=== PATIENT | female | born 1955 | race Caucasian/White ===

== ENCOUNTER 2020-04-25 14:21 | Emergency (ER) | payer MEDICARE, OTHER ==
[2020-04-25 14:36] VITALS: BP 179/96; PULSE 110; O2SAT 96
[2020-04-25] MEDS ORDERED: Adacel Vial IM ONE ×2 (14:41→14:46)
--- NOTE | 2020-04-25 14:48 | ERPHSYRPT ---
- History of Present Illness Time Seen by Provider: 04/25/20 14:40 Source: patient Patient Subjective Stated Complaint: pt here for a superficial laceration to left ankle, she was push mowing today and something hit her to ankle. Triage Nursing Assessment: pt alert, face mask on, resp easy,walked in, has swelling and brusing to left ankle with a 7cm superficial laceration to ankle no bleeding noted Physician History: Patient is a 64-year-old female presents to our ED for evaluation of a superficial laceration to her left medial malleolus. Patient was cutting grass when an object flung at her ankle. Patient bled considerably decided to come to our ED for evaluation. Injury occurred just prior to arrival. Pain is minimal. Patient declined pain medication. Patient is ambulatory. Tetanus is not up-to-date. Patient advised that we will update her tetanus today. No other injuries reported. Pain described as an ache that is well localized. Patient voices no other complaints or concerns at this time. Timing/Duration: today Quality: painful Severity: mild Location: other (Just superficial to left medial malleolus.) Possible Causes: other (Injury) Modifying Factors: Improves With: other Associated Symptoms: denies symptoms Allergies/Adverse Reactions: Penicillins Allergy (Verified 04/25/20 14:36) Home Medications: Venlafaxine HCl [Venlafaxine HCl ER] 1 ea DAILY 04/25/20 [History] Hx Tetanus, Diphtheria Vaccination/Date Given: No Hx Influenza Vaccination/Date Given: Yes Hx Pneumococcal Vaccination/Date Given: No Immunizations Up to Date: Yes Travel Risk - International Travel Have you traveled outside of the country in past 3 weeks: No - Coronavirus Screening Are you exhibiting any of the following symptoms?: No Close contact with a COVID-19 positive Pt in past 14-21 Days: No - Review of Systems Constitutional: No Symptoms, No Fever, No Chills Eyes: No Symptoms Ears, Nose, & Throat: No Symptoms Respiratory: No Symptoms, No Cough, No Dyspnea Cardiac: No Symptoms, No Chest Pain, No Edema, No Syncope Abdominal/Gastrointestinal: No Symptoms, No Abdominal Pain, No Nausea, No Vomiting, No Diarrhea Genitourinary Symptoms: No Symptoms, No Dysuria Musculoskeletal: No Symptoms, No Back Pain, No Neck Pain Skin: No Symptoms, No Rash Neurological: No Symptoms, No Dizziness, No Focal Weakness, No Sensory Changes Psychological: No Symptoms Endocrine: No Symptoms Hematologic/Lymphatic: No Symptoms Immunological/Allergic: No Symptoms All Other Systems: Reviewed and Negative - Past Medical History Pertinent Past Medical History: Yes Psycho-Social History: Depression - Past Surgical History Past Surgical History: Yes - Social History Smoking Status: Never smoker Exposure to second hand smoke: No Drug Use: none Patient Lives Alone: No - Female History Hx Last Menstrual Period: post Hx Now: No - Nursing Vital Signs Nursing Vital Signs: Initial Vital Signs Temperature 98.2 F 04/25/20 14:30 Pulse Rate 110 H 04/25/20 14:30 Respiratory Rate 04/25/20 14:30 Blood Pressure 179/96 04/25/20 14:30 O2 Sat by Pulse Oximetry 96 04/25/20 14:30 Pain Scale Pain Intensity 5 - Physical Exam General Appearance: no apparent distress, alert Eye Exam: PERRL/EOMI, eyes nml inspection Ears, Nose, Throat Exam: normal ENT inspection, moist mucous membranes Neck Exam: normal inspection, full range of motion Respiratory Exam: normal breath sounds, lungs clear, airway intact, No respiratory distress, No accessory muscle use Cardiovascular Exam: regular rate/rhythm, normal heart sounds Gastrointestinal/Abdomen Exam: soft, No tenderness Back Exam: normal inspection, normal range of motion, No CVA tenderness, No vertebral tenderness Extremity Exam: normal inspection, normal range of motion Neurologic Exam: alert, oriented x 3, cooperative, normal mood/affect, sensation nml, No motor deficits Skin Exam: normal color, warm, dry, other (7 cm superficial laceration just over the medial malleolus. No exposed bone. No active bleeding or drainage. Patient's involved extremity is neurovascular intact distally. Compartments are soft. Cap refill less than 2 seconds. PT DP pulse palpable.) Lymphatic Exam: No adenopathy SpO2 Interpretation: normal SpO2: 96 O2 Delivery: Room Air - Course Nursing assessment & vital signs reviewed: Yes Ordered Tests: Medication Summary Discontinued Medications Generic Name Dose Route Start Last Admin Trade Name Freq PRN Reason Stop Dose Admin Diphtheria/Tetanus/Acell Pertussis 0.5 ml 04/25/20 14:41 Adacel Vial IM 04/25/20 14:42 .ONCE ONE - Progress Progress: improved Progress Note: 04/25/20 14:46 Patient's wound was irrigated and dressed. Tetanus was updated. No indication for laceration repair or stitches. Local wound care only. Wound was irrigated and dressed with antibiotic ointment. Patient is ambulatory with minimal to no pain. Patient states she presents to our ED simply because she was concerned with the amount of bleeding. No active bleeding at this time. Extremity neurovascular type distally. We will discharge patient home. Patient agrees to follow-up with her primary care doctor within 48 hours for reevaluation. No indication for antibiotics at this time. 04/25/20 14:48 Counseled pt/family regarding: diagnosis, need for follow-up - Departure Departure Disposition: Home Clinical Impression: Abrasion Condition: Good Critical Care Time: No Instructions: Wound Care (DC) Additional Instructions: Discharge/Care Plan REX BRICENO was seen on 04/25/20 in the Emergency Room. The patient was counseled regarding Diagnosis,Lab results, Imaging studies, need for follow up and when to return to the Emergency Room. Prescriptions given: Discharge Note I have spoken with the patient and/or caregivers. I have explained the patient's condition, diagnosis and treatment plan based on the information available to me at this time. I have answered the patient's and/or caregiver's questions and addressed any concerns. The patient and/or caregivers have as good understanding of the patient's diagnosis, condition and treatment plan as can be expected at this point. The vital signs have been stable. The patient's condition is stable and appropriate for discharge from the emergency department. The patient will pursue further outpatient evaluation with the primary care physician or other designated or consulting physician as outlined in the discharge instructions. The patient and/or caregivers are agreeable to this plan of care and follow-up instructions have been explained in detail. The patient and/or caregivers have received these instruction. The patient/and or caregivers are aware that any significant change in condition or worsening of symptoms should prompt an immediate return to this or the closest emergency department or call 911.
== END 2020-04-25 14:56 | disposition home or self-care (01) ==
LOC: ED 14:21
DX: S90.512A Abrasion, left ankle, initial encounter (principal); W22.8XXA Striking against or struck by other objects, initial encounter; Y93.H9 Activity, other involving exterior property and land maintenance, building and construction; Y92.89 Other specified places as the place of occurrence of the external cause; Y99.8 Other external cause status
CPT/HCPCS: 90471; 90715; 99283

== ENCOUNTER 2022-01-28 07:59 | Day surgery (SDC) | payer MEDICARE, OTHER ==
[~2022-01-28 07:59] MED LIST: Ak-Dilate OPHTHALMIC*** 1.065 ML, Cyclogyl 1% OPHTH SOL 1.065 ML, GATIFLOXACIN 0.5% OPH... OP ONE; BETADINE 5% OPHTHALMIC 30 ML OP ONE; Lactated Ringers 1,000 ML IV SCH; NON-FORMULARY ITEM OP ONE; TETRACAINE 0.5% STERI-UNIT SOL OP ONE; cefUROXime sodium 0.005 GM in Sodium Chloride Flush 30 ML*** 0.5 ML IJ ONE
[2022-01-28] MEDS ORDERED: Lactated Ringers 1,000 ML IV ONE (08:41)
[2022-01-28] MEDS ORDERED: LIDOCAINE HCL 1% 50 MG/5 ML VL PF IJ ONE (09:00)
[2022-01-28] MEDS ORDERED: ACETAZOLAMIDE 250 MG TABLET PO ONE (09:00)
[2022-01-28] MEDS ORDERED: Zofran 4 MG/2 ML VIAL IV PRN (09:00)
[2022-01-28] MEDS ORDERED: Epinephrine Preservative Free 1 MG/ML IJ ONE (09:00)
[2022-01-28] MEDS ORDERED: DIPRIVAN 200 MG/20 ML IV ONE (10:25)
[2022-01-28 11:05] VITALS: BP 139/80; PULSE 77; O2SAT 97
== END 2022-01-28 11:15 | disposition home or self-care (01) ==
LOC: SDC 07:59
PROVIDERS: ATTEND Ophthalmology
DX: H25.812 Combined forms of age-related cataract, left eye (principal)
CPT/HCPCS: C1780; J0171; J2001; J2704; A9270-GY

== ENCOUNTER 2022-02-25 07:16 | Day surgery (SDC) | payer MEDICARE, OTHER ==
[2022-02-25] MEDS ORDERED: Lactated Ringers 1,000 ML IV ONE (07:43)
[2022-02-25] MEDS ORDERED: Ak-Dilate OPHTHALMIC*** 1.065 ML, Cyclogyl 1% OPHTH SOL 1.065 ML, GATIFLOXACIN 0.5% OPH... OP ONE ×4 (08:00)
[2022-02-25] MEDS ORDERED: BETADINE 5% OPHTHALMIC 30 ML OP ONE (08:00)
[2022-02-25] MEDS ORDERED: NON-FORMULARY ITEM OP ONE (08:00)
[2022-02-25] MEDS ORDERED: cefUROXime sodium 0.005 GM in Sodium Chloride Flush 30 ML*** 0.5 ML IJ ONE (08:00)
[2022-02-25] MEDS ORDERED: Lactated Ringers 1,000 ML IV SCH (08:00)
[2022-02-25] MEDS ORDERED: TETRACAINE 0.5% STERI-UNIT SOL OP ONE ×2 (08:00)
[2022-02-25] MEDS ORDERED: Epinephrine Preservative Free 1 MG/ML IJ ONE (10:00)
[2022-02-25] MEDS ORDERED: ACETAZOLAMIDE 250 MG TABLET PO ONE (10:00)
[2022-02-25] MEDS ORDERED: LIDOCAINE HCL 1% 50 MG/5 ML VL PF IJ ONE (10:00)
[2022-02-25] MEDS ORDERED: Zofran 4 MG/2 ML VIAL IV PRN (10:00)
[2022-02-25] MEDS ORDERED: DIPRIVAN 200 MG/20 ML IV ONE (10:17)
[2022-02-25 10:45] VITALS: O2SAT 97
[2022-02-25 10:52] VITALS: BP 144/92; PULSE 82
== END 2022-02-25 10:57 | disposition home or self-care (01) ==
LOC: SDC 07:16
PROVIDERS: ATTEND Ophthalmology
DX: H25.811 Combined forms of age-related cataract, right eye (principal)
CPT/HCPCS: C1780; J0171; J2001; J2704; A9270-GY

== ENCOUNTER 2025-01-16 16:46 | Emergency (ER) | payer MEDICARE ==
--- NOTE | 2025-01-16 16:51 | ERPHSYRPT ---
- History of Present Illness Time Seen by Provider: 01/16/25 16:51 Source: patient, family Exam Limitations: no limitations Physician History: This is a 69-year-old white female patient who presents to the emergency department by private vehicle accompanied by her spouse with the complaint of intermittent left side of head face behind the ear pain and numbness without a history of trauma. She has not had any visual changes. She has had no changes in her speech. She has never had anything like this before. Patient takes no medications chronically and she is allergic to sulfa. Patient denies shortness of breath. Patient denies chest pain. She has had no nausea vomiting or diarrhea symptoms. Patient has not had any flulike symptoms. Timing/Duration: week(s) (3) Severity: mild Character of Deficits: altered sensation, Left Facial Deficits: no difficulties Baseline/Normal Cognition: alert oriented x 3 Current Cognition: alert oriented x 3 Baseline Gait: walks w/o assistance Associated Symptoms: denies symptoms Allergies/Adverse Reactions: Sulfa (Sulfonamide Antibiotics) Allergy (Verified 01/16/25 16:53) Hx Tetanus, Diphtheria Vaccination/Date Given: No Hx Influenza Vaccination/Date Given: Yes Hx Pneumococcal Vaccination/Date Given: No Travel Risk - International Travel Have you traveled outside of the country in past 3 weeks: No - Emerging Infectious Disease Are you exhibiting symptoms associated with any current EIDs: No - Review of Systems Constitutional: No Symptoms Eyes: No Symptoms Ears, Nose, & Throat: No Symptoms Respiratory: No Symptoms Cardiac: No Symptoms Abdominal/Gastrointestinal: No Symptoms Genitourinary Symptoms: No Symptoms Musculoskeletal: No Symptoms Skin: No Symptoms Neurological: No Symptoms Psychological: No Symptoms Endocrine: No Symptoms Hematologic/Lymphatic: No Symptoms Immunological/Allergic: No Symptoms All Other Systems: Reviewed and Negative - Past Medical History Pertinent Past Medical History: Yes Neurological History: No Pertinent History ENT History: Cataracts Cardiac History: No Pertinent History Respiratory History: No Pertinent History Endocrine Medical History: No Pertinent History Musculoskeletal History: Fibromyalgia GI Medical History: No Pertinent History History: No Pertinent History Psycho-Social History: No Pertinent History Female Reproductive Disorders: No Pertinent History - Past Surgical History Past Surgical History: Yes Neuro Surgical History: No Pertinent History Cardiac: No Pertinent History Respiratory: No Pertinent History Gastrointestinal: No Pertinent History Genitourinary: No Pertinent History Musculoskeletal: No Pertinent History Female Surgical History: Tubal Ligation - Social History Smoking Status: Never smoker Exposure to second hand smoke: No - Nursing Vital Signs Nursing Vital Signs: Initial Vital Signs Temperature 98.3 F 01/16/25 16:54 Pulse Rate 99 H 01/16/25 16:54 Respiratory Rate 21 01/16/25 16:54 Blood Pressure 196/118 01/16/25 16:54 O2 Sat by Pulse Oximetry 98 01/16/25 16:54 Pain Scale Pain Intensity 0 - Abraham Coma Scale Best Eye Response (Abraham): (4) open spontaneously Best Verbal Response (Van): (5) oriented Best Motor Response (Van): (6) obeys commands Van Total: 15 - Physical Exam General Appearance: no apparent distress, alert Eye Exam: bilateral eye: normal inspection, PERRL, EOMI Ears, Nose, Throat Exam: normal ENT inspection, moist mucous membranes Neck Exam: normal inspection, non-tender, supple, full range of motion Respiratory: normal breath sounds, lungs clear, airway intact, No chest tenderness, No respiratory distress Cardiovascular: regular rate/rhythm, normal heart sounds, normal peripheral pulses Gastrointestinal: soft, normal bowel sounds, No tenderness Pelvic Exam: not done Rectal Exam: not done Back Exam: normal inspection, normal range of motion, No CVA tenderness, No vertebral tenderness Extremity Exam: normal inspection, normal range of motion, pelvis stable Mental Status: alert, oriented x 3, cooperative business systems lead Exam: normal hearing, normal speech, PERRL, tongue midline Coordination/Gait: normal finger to nose, normal gait, normal cerebellar function Motor/Sensory: no motor deficit, no sensory deficit, no pronator drift Skin Exam: normal color, warm, dry SpO2 Interpretation: normal O2 Delivery: Room Air - Course Nursing assessment & vital signs reviewed: Yes Ordered Tests: Active Orders 24 hr Category Date Time Status NPO (ED) STAT Care 01/16/25 17:11 Active CERVICAL SPINE WO CONTRAST [CT] Stat Exams 01/16/25 17:12 Taken HEAD WITHOUT CONTRAST [CT] Stat Exams 01/16/25 17:11 Taken CBC W DIFF Stat Lab 01/16/25 17:10 Completed CMP Stat Lab 01/16/25 17:01 Completed UA W/RFX UR CULTURE Stat Lab 01/16/25 18:47 Completed Medication Summary Discontinued Medications Generic Name Dose Route Start Last Admin Trade Name Freq PRN Reason Stop Dose Admin Morphine Sulfate 2 mg 01/16/25 19:15 Morphine Sulfate 2 Mg/Ml Inj IV 01/16/25 19:16 STAT ONE Ondansetron HCl 4 mg 01/16/25 19:15 Ondansetron Hcl 4 Mg/2 Ml Vial IV 01/16/25 19:16 STAT ONE Lab/Rad Data: Laboratory Result Diagrams 01/16/25 17:10 01/16/25 17:01 Laboratory Results 01/16/25 01/16/25 01/16/25 Range/Units 18:47 17:10 17:01 WBC 6.4 (3.98-10.04) x10^3/uL RBC 5.25 H (3.93-5.22) x10^6/uL Hgb 15.5 (11.2-15.7) g/dL Hct 46.1 H (34.1-44.9) % MCV 87.8 (79.4-94.8) fL MCH 29.5 (25.6-32.2) pg MCHC 33.6 (32.2-35.5) g/dL RDW 12.8 (11.7-14.4) % Plt Count 272 (182-369) x10^3/uL MPV 10.0 (9.4-12.3) fL Gran % 58.6 (34.0-71.1) % Immature Gran % (Auto) 0.2 (0.001-0.429) % Nucleat RBC Rel Count 0.0 (0.00-0.2) % Eos # (Auto) 0.01 L (0.04-0.36) x10^3/uL Immature Gran # (Auto) 0.01 (0.001-0.031) x10^3u/L Absolute Lymphs (auto) 2.09 (1.18-3.74) x10^3/uL Absolute Monos (auto) 0.51 (0.24-0.86) x10^3/uL Absolute Nucleated RBC 0.00 (0.00-0.012) x10^3u/L Lymphocytes % 32.8 (19.3-51.7) % Monocytes % 8.0 (4.7-12.5) % Eosinophils % 0.2 L (0.7-5.8) % Basophils % 0.2 (0.1-1.2) % Absolute Granulocytes 3.75 (1.56-6.13) x10^3/uL Basophils # 0.01 (0.01-0.08) x10^3/uL Sodium 144 (135-145) mmol/L Potassium 3.9 (3.5-5.1) mmol/L Chloride 109 H (98-107) mmol/L Carbon Dioxide 24 (22-30) mmol/L Anion Gap 15.3 H (5-15) MEQ/L BUN 21 H (7-17) mg/dL Creatinine 0.93 (0.52-1.04) mg/dL Estimated GFR 65.7 ML/MIN Glucose 102 (74-106) mg/dL Calcium 9.7 (8.4-10.2) mg/dL Total Bilirubin 0.40 (0.2-1.3) mg/dL AST 32 (14-36) U/L ALT 27 (0-35) U/L Alkaline Phosphatase 88 (38-126) U/L Serum Total Protein 7.2 (6.3-8.2) g/dL Albumin 4.4 (3.5-5.0) g/dL Urine Color Yellow (Yellow) Urine Appearance Clear (Clear) Urine pH 6.0 (4.6-8.0) Ur Specific [place] 1.015 (1.005-1.030) Urine Protein Negative (Negative) Urine Glucose (UA) Negative (Negative) mg/dL Urine Ketones Negative (Negative) Urine Blood Negative (Negative) Urine Nitrite Negative (Negative) Urine Bilirubin Negative (Negative) Urine Urobilinogen 0.2 (0.2) mg/dL Ur Leukocyte Esterase Trace A (Negative) U Hyaline Cast (Auto) NONE SEEN (0-2) /LPF Urine Microscopic RBC 0-2 (0-5) /HPF Urine Microscopic WBC 0-2 (0-5) /HPF Ur Epithelial Cells None Seen (None Seen) /HPF Urine Bacteria None Seen (None Seen) /HPF Urine Culture Reflexed NO (NO) - Progress Progress: unchanged Progress Note: 01/16/25 19:06 My medical decision making and the assignment of moderate complexity to this patient's medical issue today is based on review of the patient's past medical history, review the patient's medication list, reviewed patient drug allergy list, history present illness and physical findings on examination. The workup in this patient includes placement of intravenous line, urinalysis, CBC, CMP, magnesium level, CT scan of the head and cervical spine, both without contrast. Differential diagnosis includes but is not limited to acute intracranial abnormality, electrolyte abnormalities, cervical spine nerve impingement, trigeminal neuralgia The CT scan of the cervical spine and head, both without contrast, were interpreted by the radiologist and I reviewed the impressions. The impression state: CT scan of cervical spine shows osteopenia with mild C5-C7 degenerative disc disease. Otherwise negative C-spine CT scan exam. No comparison studies. CT scan of the head without contrast shows normal head CT. I interpreted the laboratory data results that have returned thus far. The urinalysis is still pending. Based on what has returned, there are no acute, emergent medical issues. Counseled pt/family regarding: lab results, diagnosis, need for follow-up, rad results Medical Desision Making - Independent Historian Additional History obtained from: Spouse - Diagnostic Testing Diagnostic test were ordered, analyzed, and reviewed by me: Yes Radiological Interpretation: Reviewed by me, Teleradiologist Report - Departure Departure Disposition: Home Clinical Impression: Cervical pain (neck), Shoulder pain Condition: Stable Critical Care Time: No Referrals: RENÉ BENITEZ [Primary Care Provider] - Follow up/PCP as directed Additional Instructions: If there are no contraindications, you may use Tylenol and ibuprofen to add to your pain regimen. Call your primary care provider's office tomorrow, 01/17/2025, to make arrangements for follow-up appointment for further evaluation and management. Prescriptions: Orphenadrine Citrate 100 mg [Norflex 100 MG Tablet] 100 mg PO BID #10 tab
[2025-01-16 17:03] VITALS: TEMP 98.3
[2025-01-16 17:16] LABS: Absolute Neutrophil Ct (ANC) 3.75 x10^3/uL (1.56-6.13); BASOPHIL % 0.2 % (0.1-1.2); Basophil (Absolute #) 0.01 x10^3/uL (0.01-0.08); Eosinophil % 0.2 % (0.7-5.8); Eosinophil (Absolute #) 0.01 x10^3/uL (0.04-0.36); Hematocrit 46.1 % (34.1-44.9); Hemoglobin 15.5 g/dL (11.2-15.7); IMMATURE GRAN # 0.01 x10^3u/L (0.001-0.031); IMMATURE GRAN % 0.2 % (0.001-0.429); Lymphocyte (Absolute #) 2.09 x10^3/uL (1.18-3.74); Lymphocytes % 32.8 % (19.3-51.7); Mean Cell Volume 87.8 fL (79.4-94.8); Mean Corpuscular Hemoglobin 29.5 pg (25.6-32.2); Mean Corpuscular Hgb Concent. 33.6 g/dL (32.2-35.5); Monocyte (Absolute #) 0.51 x10^3/uL (0.24-0.86); Neutrophil % 58.6 % (34.0-71.1); Platelet Count 272 x10^3/uL (182-369); Red Blood Count 5.25 x10^6/uL (3.93-5.22); Red Cell Distribution Width 12.8 % (11.7-14.4); White Blood Count 6.4 x10^3/uL (3.98-10.04)
[2025-01-16 17:29] LABS: ALBUMIN 4.4 g/dL (3.5-5.0); ANION GAP 15.3 MEQ/L (5-15); BILIRUBIN,TOTAL 0.4 mg/dL (0.2-1.3); Calcium 9.7 mg/dL (8.4-10.2); Creatinine 1 0.93 mg/dL (0.52-1.04); EST GLOMERULAR FILTRATION RATE 65.7 ML/MIN; Potassium 3.9 mmol/L (3.5-5.1); Total Protein 7.2 g/dL (6.3-8.2)
[2025-01-16 19:03] LABS: Appearance Clear (Clear); Bacteria None Seen /HPF (None Seen); Bilirubin Negative (Negative); Blood Negative (Negative); Epithelial Cells None Seen /HPF (None Seen); Glucose, Urine Negative (Negative); Hyaline Casts NONE SEEN /LPF (0-2); Ketones Negative (Negative); Leukocyte Esterase Trace (Negative); Nitrite Negative (Negative); Protein,Urine Dip Negative (Negative); RBC 0-2 /HPF (0-5); Specific Gravity 1.015 (1.005-1.030); Urobilinogen 0.2 mg/dL (0.2); WBC 0-2 /HPF (0-5)
[2025-01-16] MEDS ORDERED: Zofran 4 MG/2 ML VIAL ONE (19:24)
[2025-01-16] MEDS ORDERED: MORPHINE SULFATE 2 MG INJ ONE (19:24)
[2025-01-16] MEDS: MORPHINE SULFATE 2 MG INJ IV ONE (19:27)
[2025-01-16] MEDS: Zofran 4 MG/2 ML VIAL IV ONE (19:27)
[2025-01-16] MEDS ORDERED: TYLENOL 325 MG ONE (19:34)
[2025-01-16] MEDS: TYLENOL 325 MG PO ONE (19:35)
[2025-01-16 19:46] VITALS: BP 175/98; PULSE 99; RESP 22; O2SAT 95
--- NOTE | 2025-01-17 08:34 | XRAY ---
Indication: Left headache 3 weeks. Multiple contiguous axial images obtained through the head without contrast. Comparison: August 27, 2011. Normal appearing brain parenchyma, ventricles, and bony calvarium for patient's age. Visualized paranasal sinuses and mastoid air cells are clear. Impression: Continued normal CT head without contrast exam.
--- NOTE | 2025-01-17 08:36 | XRAY ---
Indication: Left neck pain 3 weeks. Multiple contiguous axial images obtained through the cervical spine. Sagittal and coronal reformatted images obtained. Comparison: None Osseous structures demineralized. Axial images negative for acute fracture, suspicious bony lesions, or spinal canal stenosis. Mild broad-based disc osteophyte complex at C5-C7 levels and mild multilevel bilateral degenerative facet hypertrophy. Sagittal and coronal reformatted images demonstrates normal alignment with vertebral body heights/disc spaces maintained. No acute compression fracture or jumped facet. Normal appearing craniocervical junction. Visualized noncontrasted soft tissues demonstrates mild left and minimal right carotid calcifications. 5 mm left thyroid hypodense nodule/cyst. Lung apices clear. Impression: Chronic findings including osteopenia, multilevel degenerative spondylosis, carotid calcifications, and left thyroid hypodense nodule/cyst. No acute findings.
== END 2025-01-16 19:40 | disposition home or self-care (01) ==
LOC: ED 16:46
DX: M54.2 Cervicalgia (principal); M25.519 Pain in unspecified shoulder; R51.9 Headache, unspecified; Z79.899 Other long term (current) drug therapy
CPT/HCPCS: 36415; 70450; 72125; 80053; 81001; 85025; 99284; J2270; J2405; A9270-GY